=== PATIENT | male | born 1975 | race Caucasian/White ===

== ENCOUNTER 2019-09-14 14:09 | Day surgery (SDC) | payer OTHER ==
[~2019-09-14] VITALS: Ht 185.4 cm; Wt 100.2 kg
[~2019-09-14 14:09] MED LIST: NS 1,000 ML IV ONE; PEPC1TAB5 PO
[2019-09-14] MEDS ORDERED: fentaNYL 100 MCG/2 ML INJECTION (J3010) As Ordered ONE (16:06)
[2019-09-14] MEDS ORDERED: propofoL 200 MG/20 ML VIAL As Ordered ONE (16:06)
[2019-09-14] MEDS ORDERED: LIDOCAINE 2% INJ 100 MG/5 ML SDV (FOR ANES.) As Ordered ONE (16:06)
--- NOTE | 2019-09-14 16:37 | ROOR ---
Patient Name: Law Jain Procedure Date: 09/14/2019 4:11 PM Date of : 1975 Age: 43 Room: [facility] Gender: Male Note Status: Finalized Procedure: Upper GI endoscopy Indications: Surveillance for malignancy due to personal history of Castle's esophagus Providers: Charles MARTINEZ MD Referring MD: SOFIYA BROOKS MD Requesting Provider: Medicines: Monitored Anesthesia Care Complications: No immediate complications. Procedure: Pre-Anesthesia Assessment: - The heart rate, respiratory rate, oxygen saturations, blood pressure, adequacy of pulmonary ventilation, and response to care were monitored throughout the procedure. The Endoscope was introduced through the mouth, and advanced to the second part of duodenum. The upper GI endoscopy was accomplished without difficulty. The patient tolerated the procedure well. Findings: Moderately severe esophagitis was found in the lower third of the esophagus. Biopsies were taken with a cold forceps for histology. Two tongues of salmon-colored mucosa were present from 39 to 40 cm. Ulcerations were present. The maximum longitudinal extent of these esophageal mucosal changes was 1 cm in length. Biopsies were taken with a cold forceps for histology. Small Hiatal Hernia. The entire examined stomach was normal. The examined duodenum was normal. Impression: - Moderately severe reflux esophagitis, ulceration and salmon-colored mucosa. Biopsied. Rule out Castle's esophagus. - Small Hiatal Hernia. - Normal stomach. - Normal examined duodenum. Recommendation: - Use Prilosec (omeprazole) 20 mg PO BID. - Discontinue Pepcid (famotidine). - (the script was sent to your pharmacy on file) Charles Martinez MD Charles MARTINEZ MD 09/14/2019 4:37:00 PM Electronically signed by Charles MARTINEZ MD Number of Addenda: 0 Note Initiated On: 09/14/2019 4:11 PM Estimated Blood Loss: Estimated blood loss: none.
[2019-09-14 17:02] VITALS: BP 135/77
== END 2019-09-14 17:03 | disposition home or self-care (01) ==
LOC: M OPP 14:09
PROVIDERS: ATTEND Internal Medicine Gastroenterology
DX: K21.0 Gastro-esophageal reflux disease with esophagitis (principal); K44.9 Diaphragmatic hernia without obstruction or gangrene; K22.70 Barrett's esophagus without dysplasia; Z79.899 Other long term (current) drug therapy
CPT/HCPCS: 43239; 88305; J3010